=== PATIENT | female | born 2000 | race Caucasian/White ===

== ENCOUNTER 2019-01-30 17:03 | Emergency (ER) | payer BC, SELFPAY ==
--- NOTE | 2019-01-30 17:46 | RAD ---
LEFT WRIST THREE VIEWS: HISTORY: Fall. Pain. FINDINGS: Impacted distal radius fracture with extension to the articular surface. Ulnar styloid fracture. Slight widening of the scapholunate joint space, measuring 3 mm. Correlate for ligamentous injury. IMPRESSION: 1. Distal radius fracture with intraarticular extension. 2. Ulnar styloid fracture. 3. Possible ligamentous injury of the scapholunate ligament. POS: PPP
[2019-01-30] MEDS ORDERED: Ibuprofen 800 MG TAB ONE (17:58)
== END 2019-01-30 18:14 | disposition home or self-care (01) ==
LOC: NAV ERS 17:03
DX: S52.572A Other intraarticular fracture of lower end of left radius, initial encounter for closed fracture (principal); S52.612A Displaced fracture of left ulna styloid process, initial encounter for closed fracture; W01.0XXA Fall on same level from slipping, tripping and stumbling without subsequent striking against object, initial encounter
CPT/HCPCS: 29125